=== PATIENT | male | born 1935 | race Hispanic/Latino ===

== ENCOUNTER 2018-02-17 06:32 | Outpatient (CLI) | payer MEDICARE ==
[2018-02-17 07:05] LABS: Blood Urea Nitrogen 21 mg/dL (9-20)
--- NOTE | 2018-02-17 08:32 | Cat Scan Report ---
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 Transaxial , coronal and sagittal reformations with maximal intensity projections are provided. 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 The right common carotid artery show scattered atherosclerosis and less than 25 percent stenosis by NASCET criteria. There is bulky calcification at the carotid bulb and approximately 90 percent stenosis involving the origin of the right internal carotid artery on axial images 67-169. There is approximately 40 percent luminal stenosis at the left carotid bulb. Scattered atherosclerosis in the internal carotid artery results in less than 25 percent luminal stenosis. The left common and internal carotid arteries are otherwise normal in course and caliber. Calcification near the origin of the left vertebral artery on axial series 2, images 22, 24, and 25 results in approximately 50 percent luminal stenosis. No significant stenosis seen in the right vertebral artery. Normal caliber, well opacified basilar artery. Intact [place]. Posterior cerebral arteries and their major branches are well opacified and normal in caliber. IMPRESSION: Bulky calcification at the right carotid bulb results in approximately 90 percent stenosis at the origin of the right internal carotid artery. Approximately 50 percent stenosis at the anatomic variant aortic origin of the left vertebral artery.
== END 2018-02-17 06:33 | disposition home or self-care (01) ==
LOC: CT 06:32
PROVIDERS: ATTEND Surgery Vascular Surgery
DX: I65.03 Occlusion and stenosis of bilateral vertebral arteries (principal); E11.9 Type 2 diabetes mellitus without complications
CPT/HCPCS: 36415; 70498; 82565; 84520; Q9967

== ENCOUNTER 2018-03-02 11:00 | Inpatient (IN) | payer MEDICARE ==
[2018-02-26 12:01] LABS: Basophils # (Auto) 0.1 K/mm3 (0.0-0.1); Basophils % (Auto) 0.7 % (0.0-1.8); Eosinophils # (Auto) 0.1 K/mm3 (0.0-0.4); Eosinophils % (Auto) 0.8 % (0.0-4.3); Hematocrit 39.9 % (35.5-45.6); Hemoglobin 13.9 gm/dl (11.8-15.2); Lymphocytes # (Auto) 1.8 K/mm3 (1.2-5.4); Lymphocytes % (Auto) 20.1 % (13.4-35.0); Mean Corpuscular HGB Conc 35 % (32-34); Mean Corpuscular Hemoglobin 32 pg (28-32); Mean Corpuscular Volume 90 fl (84-94); Monocytes # (Auto) 0.9 K/mm3 (0.0-0.8); Monocytes % (Auto) 9.9 % (0.0-7.3); Platelet Count 193 K/mm3 (140-440); Red Blood Count 4.42 M/mm3 (3.65-5.03); Red Cell Distribution Width 14.9 % (13.2-15.2)
[2018-02-26 12:13] LABS: INR 1.84 (0.87-1.13)
[2018-02-26 12:35] LABS: BUN/Creatinine Ratio 21; Blood Urea Nitrogen 23 mg/dL (9-20); Calcium 8.8 mg/dL (8.4-10.2); Hemolysis Index 9
--- NOTE | 2018-02-26 17:25 | Anesthesia Consultation ---
Anesthesia Consult and Med Hx - Airway Anesthetic Teeth Evaluation: Dentures ROM Head & Neck: Adequate Mental/Hyoid Distance: Adequate Mallampati Class: Class II Intubation Access Assessment: Good - Pulmonary Exam CTA: Yes - Cardiac Exam Cardiac Exam: RRR - Pre-Operative Health Status ASA Pre-Surgery Classification: ASA3 Proposed Anesthetic Plan: General - Pulmonary Hx Smoking: Yes (Former) - Cardiovascular System Hx Coronary Artery Disease: Yes Hx Heart Attack/AMI: Yes (? when) - Central Nervous System Hx Back Pain: Yes Hx Psychiatric Problems: No - Other Systems Hx Cancer: Yes
[~2018-03-02 11:00] MED LIST: LACTATED RINGERS 1,000 ML IV SCH
[2018-03-03] MEDS ORDERED: ANCEF/STERILE WATER 2 GM/20 ML 2 GM/20 ML SYRINGE IV NR (06:00)
[2018-03-03] MEDS ORDERED: NACL BACTERIOSTATIC INFILTRATI ONE (06:36)
--- NOTE | 2018-03-03 07:11 | Anesthesia Day of Surgery ---
Anesthesia Day of Surgery - Day of Surgery Patient Examined: Yes Patient H&P Reviewed: Yes Patient is NPO: Yes
[2018-03-03] MEDS ORDERED: ZOFRAN IV PRN ×2 (07:12→15:06)
[2018-03-03] MEDS ORDERED: PERCOCET 5/325 PO PRN (07:12)
[2018-03-03] MEDS ORDERED: DILAUDID IV PRN (07:12)
[2018-03-03] MEDS ORDERED: RIFADIN ONE (07:14)
[2018-03-03] MEDS ORDERED: PAPAVERINE ONE (07:14)
[2018-03-03] MEDS ORDERED: NACL 0.9% 250ML 0 ML ONE (07:14)
[2018-03-03] MEDS ORDERED: MARCAINE 0.5% 30 ML INFILTRATI ONE (07:14)
[2018-03-03] MEDS ORDERED: XYLOCAINE 1% 20 mL ONE ×2 (07:14→07:43)
[2018-03-03] MEDS ORDERED: HEPARIN 10,000 UNITS/10 ML ONE (07:14)
[2018-03-03] MEDS ORDERED: PROTAMINE SULFATE ONE (07:14)
[2018-03-03] MEDS ORDERED: THROMBIN (BOVINE) TP ONE ×2 (07:15→10:36)
[2018-03-03] MEDS ORDERED: NACL 0.9% 500 ML 500 ML ONE (07:15)
[2018-03-03] MEDS ORDERED: GELFOAM TP ONE ×2 (07:15→10:36)
[2018-03-03] MEDS ORDERED: QUELICIN ONE (07:45)
[2018-03-03] MEDS ORDERED: ZEMURON IV ONE (07:45)
[2018-03-03] MEDS ORDERED: XYLOCAINE CARDIAC IV ONE (07:45)
[2018-03-03] MEDS ORDERED: SUBLIMAZE ONE (07:46)
[2018-03-03] MEDS ORDERED: DIPRIVAN 10 MG/ML IV ONE (07:46)
[2018-03-03] MEDS ORDERED: VERSED IV NR (08:00)
[2018-03-03] MEDS ORDERED: NITROGLYCERIN SYRINGE 3 ML ONE (08:04)
[2018-03-03 08:15] LABS: INR 0.97 (0.87-1.13)
[2018-03-03] MEDS ORDERED: ROBINUL ONE ×2 (08:35→10:35)
[2018-03-03] MEDS ORDERED: ePHEDrine SULFATE ONE (08:37)
[2018-03-03] MEDS ORDERED: RIFADIN 600 MG in NACL 0.9% 50 ML IR ONE (09:16)
[2018-03-03] MEDS ORDERED: HEPARIN 10,000 UNITS/10 ML 2,000 UNIT in NACL 0.9% 500 ML 500 ML IR ONE (09:16)
[2018-03-03] MEDS ORDERED: MARCAINE 0.5% INFILTRATI ONE (09:16)
[2018-03-03] MEDS ORDERED: NACL 0.9% IR ONE (09:16)
[2018-03-03] MEDS ORDERED: NEOSTIGMINE ONE (10:35)
[2018-03-03] MEDS ORDERED: ZOFRAN ONE (10:35)
--- NOTE | 2018-03-03 11:25 | Operative Report ---
Operative Report Operative Report: Date of procedure: 03/03/2018 Pre-operative diagnosis: Right Carotid Artery Stenosis Post-operative diagnosis: Right Carotid Artery Stenosis Procedure(s): 1. Right Carotid Endarterectomy With Patch Angioplasty 2. Intraoperative Completion Duplex Surgeon: Jono Hidalgo MD Supervisor Feed Mill: None Anesthesia: General Endotracheal Anesthesia EBL: Minimal Findings: Significant internal right carotid artery stenosis. Specimen: Right Carotid Plaque Counts: Correct Complications: None Condition: Stable Indication: The patient is an 82-year-old male with history of coronary artery disease and age for fibrillation was referred for asymptomatic carotid artery stenosis. She had a carotid artery duplex that demonstrated greater than 80% stenosis of his right internal carotid artery that was confirmed by CTA of his neck. He was worked up by his pasting machine operator and found to be a suitable candidate for open repair. He was given the risk, benefits, and alternative procedures and consented to the procedure. Description of Procedure: The patient was brought to the operating room and laid in supine position. After general endotracheal anesthesia was achieved the patient was placed in beachchair position with her head elevated and turned slightly to the left. The patient's neck and chest were prepped and draped in normal fashion. An oblique incision was then created along the anterior border of the sternocleidomastoid. The incision was then carried down to the facial vein using sharp dissection. The facial vein was then dissected out circumferentially, suture ligated and divided. The dissection was then carried down to the common carotid using sharp dissection. The common carotid artery was dissected out circumferentially taking care to avoid the vagus nerve which was identified and avoided. The artery was then controlled with a large vessel loop. The dissection was carried up along the external carotid and the superficial thyroid artery was identified dissected out circumferentially and controlled with a 2-0 silk. The external carotid was dissected out and controlled a small vessel loop. I then dissected out the internal carotid artery well above the plaque which was identified by a change in hue of the artery from yellow to blue and palpation of the artery over a right angle. The hypoglossal nerve was identified and avoided. I controlled the internal carotid artery with a small vessel and at this point the patient was systemically heparinized with heparin IV. Once the heparin had circulated for 3 minute I clamped the internal carotid artery followed by the common carotid and then the external Carotid artery. I created an arteriotomy extending from the common carotid into the internal carotid, well above the plaque, using an 11 blade and Coates scissors. I then flashed the internal carotid artery to check for adequate backbleeding. Once ensure there was adequate backbleeding reclamped the artery and used a [place] blade to dissect the plaque away from the artery. I used a right angle to continue the dissection of this plane from lateral to medial and then divided the plaque using Coates scissors. I then trimmed the plaque proximally using Coates and then teased the plaque away from the distal endpoint insuring that there were no areas of dissection or intimal flaps. These plaque forceps to remove all loose debris and then flushed the artery with heparinized saline. I then closed the artery using the Dacron patch and two 6-0 Prolenes in running fashion. Prior to completing the closure I flushed all arteries to remove all loose debris and then flushed the artery with heparinized saline. I then completed the closure in an flashed the internal carotid, reclamped and then removed the clamp from the common carotid followed by the external carotid and allowed any loose debris to flush into the external carotid. I then removed the clamp from the internal carotid artery. Hemostasis was achieved with repair sutures with 6-0 Prolene in interrupted fashion and a combination of direct pressure with Quick Clot. Once hemostasis was achieved I performed an intraoperative duplex that demonstrated no evidence of dissection and normalization of internal carotid velocity. I then anesthetized the wound with 0.5% Marcaine and closed in 2 layers using a 3-0 Vicryl in running in the deep dermal layer and a 4-0 Monocryl in running in the subcuticular layer and dressed it with the Dermabond. The patient tolerated the procedure well all sponge needle and instrument counts were correct the patient was taken to the recovery area in stable condition.
--- NOTE | 2018-03-03 11:36 | Post Anesthesia Evaluation ---
- Post Anesthesia Evaluation Patient Participated: Yes Airway Patent: Yes Stable Respiratory Function: Yes Nausea/Vomiting: No Temp > 96.8F: Yes Pain Manageable: Yes Adequeate Hydration: Yes Anesthesia Complications: No Block Receding Appropriately: Not Applicable Patient on Ventilator: No
[2018-03-03] MEDS ORDERED: NEO SYNEPHRINE/NS Syringe(OR USE) IV ONE (12:40)
[2018-03-03] MEDS ORDERED: NARCAN 0.4 MG/1 ML IV PRN (15:06)
[2018-03-03] MEDS: NORCO 5/325 PO PRN ×2 (15:24→21:51)
[2018-03-03] MEDS ORDERED: INTROPIN DRIP 800 MG/D5W 250 ML 800 MG/250 ML BAG IV SCH (16:00)
[2018-03-03] MEDS ORDERED: NIPRIDE 50 MG in D5W 248 ML IV SCH (16:00)
[2018-03-03] MEDS ORDERED: NACL 0.9% 1000 ML 1,000 ML IV SCH (16:00)
[2018-03-03] MEDS ORDERED: ANCEF/NS 1 GM/50 ML 1 GM/50 ML BAG IV SCH (16:00)
[2018-03-03] MEDS ORDERED: COUMADIN PO SCH ×2 (17:00)
[2018-03-03] MEDS: HumaLOG SUB-Q SCH ×2 (17:19→21:50)
[2018-03-03] MEDS: ceFAZolin 1 GM in NACL 0.9% 20 ML IV SCH ×2 (17:19→23:57)
[2018-03-03] MEDS: LOVENOX SUB-Q SCH (21:50)
[2018-03-03] MEDS: COLACE PO SCH (21:51)
[2018-03-03] MEDS: GLUCOPHAGE PO SCH (21:51)
[2018-03-04 05:44] LABS: INR 1.05 (0.87-1.13)
--- NOTE | 2018-03-04 09:05 | Consultation ---
History of Present Illness Consult date: 03/04/18 Requesting physician: RIGOBERTO GREEN Reason for consult: other (Post carotid endarterectomy for ICU monitoring) History of present illness: This is a 82 year old man admitted to the ICU for close monitoring post right carotid endarterectomy. 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 Carotid doppler studies showed 76-95% stenosis in the right internal carotid and 50-75% lesion in the left internal carotid artery. His echocardiogram on 12/11/2016 showed normal systolic function with EF 60%. He coumadin was held 4 days prior to surgery and his aspirin 1 week before surgery. He underwent ,Right Carotid Endarterectomy With Patch Angioplasty with Intraoperative Completion Duplex which was uneventful. He has been admitted to the ICU for cardiac monitoring and for monitoring for re -perfusion injury. Patient was seen and examined. Vitals, labs, medications, chart, EKG were reviewed. He denies any chest pain, no shortness of breath, no palpitations.. No fevers or chills. No dizziness, no nausea or vomiting. Patient was discussed in ICU IDT rounds Past History Past Medical History: atrial fib, CAD, cancer (prostate), hypertension, hyperlipidemia Past Surgical History: CABG Social history: , lives with family Family history: CAD Medications and Allergies Allergies Allergy/AdvReac Type Severity Reaction Status Date / Time lisinopril Allergy Unknown Verified 02/25/18 11:58 oxycodone Allergy Dizziness Unverified 02/25/18 11:58 Home Medications Medication Instructions Recorded Confirmed Last Taken Type Aspirin [Aspirin EC] 81 mg PO DAILY 02/26/18 03/03/18 02/26/18 History AtorvaSTATin [Lipitor] 20 mg PO QHS 02/26/18 03/03/18 03/02/18 History Digoxin 125 mcg PO DAILY 02/26/18 03/03/18 03/03/18 History Diltiazem [CarDIZEM] 10 mg PO DAILY 02/26/18 03/03/18 03/03/18 History Finasteride [Proscar] 10 mg PO DAILY 02/26/18 03/03/18 03/03/18 History Niacin [Slo-Niacin] 500 mg PO DAILY 02/26/18 03/03/18 03/03/18 History [place]-3/Dha/Epa/Fish Oil [[place] 3 1 each PO DAILY 02/26/18 03/03/18 03/02/18 History 500 Softgel] Terazosin [Hytrin] 10 mg PO DAILY 02/26/18 03/03/18 03/02/18 History Warfarin Sodium [Coumadin] 4.5 mg PO DAILY 02/26/18 02/26/18 02/25/18 History metFORMIN [Glucophage] 500 mg PO BID 02/26/18 03/03/18 02/27/18 History HYDROcodone/APAP 7.5-325 [[place] 1 each PO Q6HR PRN #40 tablet 03/03/18 Unknown Rx 7.5/325] Active Meds: Active Medications Acetaminophen/Hydrocodone Bitart ([place] 5/325) 1 each PO Q6H PRN PRN Reason: Pain, Moderate (4-6) Last Admin: 03/03/18 21:51 Dose: 1 each Aspirin (Halfprin Ec) 81 mg PO DAILY [facility] Atorvastatin Calcium (Lipitor) 20 mg PO QHS [facility] Last Admin: 03/03/18 21:50 Dose: 20 mg Clopidogrel Bisulfate (Plavix) 75 mg PO QDAY [facility] Digoxin (Lanoxin) 0.125 mg PO DAILY [facility] Diltiazem HCl (Cardizem) 10 mg PO DAILY [facility] Docusate Sodium (Colace) 100 mg PO BID [facility] Last Admin: 03/03/18 21:51 Dose: 100 mg Enoxaparin Sodium (Lovenox) 100 mg SUB-Q Q12HR [facility] Last Admin: 03/03/18 21:50 Dose: 100 mg Finasteride (Proscar) 10 mg PO DAILY [facility] Fish Oil (Fish Oil) 1,000 mg PO QDAY [facility] Lactated Ringer's (Lactated Ringers) 1,000 mls @ 42 mls/hr IV DIRECT [facility] Last Admin: 03/03/18 06:50 Dose: 42 mls/hr Dopamine HCl/Dextrose (Intropin Drip 800 Mg/D5w 250 Ml) 800 mg in 250 mls @ 3.725 mls/hr IV TITR [facility]; Protocol Sodium Nitroprusside 50 mg/ (Dextrose) 250 mls @ 7.45 mls/hr IV TITR [facility]; Protocol Sodium Chloride (Nacl 0.9% 1000 Ml) 1,000 mls @ 100 mls/hr IV DIRECT [facility] Insulin Human Lispro (Humalog) 0 unit SUB-Q ACHS [facility]; Protocol Last Admin: 03/03/18 21:50 Dose: Not Given Metformin HCl (Glucophage) 500 mg PO BID [facility] Last Admin: 03/03/18 21:51 Dose: 500 mg Naloxone HCl (Narcan 0.4 Mg/1 Ml) 0.1 mg IV Q2MIN PRN PRN Reason: Res Rate </= 8 or 02 SAT < 92% Niacin (Niaspan Er) 500 mg PO QDAY [facility] Ondansetron HCl (Zofran) 4 mg IV Q8H PRN PRN Reason: Nausea And Vomiting Prazosin HCl (Minipress) 5 mg PO Q12HR [facility] Warfarin Sodium (Coumadin) 2 mg PO DAILY@1700 [facility] Last Admin: 03/03/18 17:20 Dose: 2 mg Warfarin Sodium (Coumadin) 2.5 mg PO DAILY@1700 [facility] Last Admin: 03/03/18 17:19 Dose: 2.5 mg Review of Systems Constitutional: no weight loss, no weight gain, no fever, no chills, no sweats Ears, nose, mouth and throat: no ear discharge, no decreased hearing, no nasal congestion, no epistaxis, no sore throat Cardiovascular: no chest pain, no palpitations, no edema, no syncope, no lightheadedness, no shortness of breath Respiratory: no cough, no congestion, no pleurisy, no pain on inspiration Gastrointestinal: no abdominal pain, no nausea, no vomiting, no diarrhea, no constipation Genitourinary Male: no dysuria, no hematuria, no discharge, no nocturia Musculoskeletal: no neck stiffness, no neck pain, no redness of joints Neurological: no head injury, no transient paralysis, no weakness, no parathesias, no numbness, no seizures Psychiatric: no anxiety, no depression, no hopelessness, no anxiety attacks Endocrine: no cold intolerance, no heat intolerance, no polyphagia, no excessive thirst, no polydipsia, no polyuria Hematologic/Lymphatic: easy bruising Allergic/Immunologic: no urticaria, no allergic rhinitis, no wheezing Physical Examination Vital signs: Vital Signs Temp Pulse Resp BP 98.1 F 76 20 130/80 02/26/18 11:30 02/26/18 11:30 02/26/18 11:30 02/26/18 11:30 General appearance: no acute distress, alert, other (right neck scar with some induration and eccyhmosis) Eyes: non-icteric ENT: oropharynx moist Neck: supple, no lymphadenopathy, no JVD Effort: normal Ascultation: Bilateral: diminished breath sounds Cardiovascular: irregular rhythm, murmur noted Gastrointestinal: normoactive bowel sounds, soft, non-tender, non-distended Integumentary: normal Extremities: no cyanosis, no edema, no ischemia or petechiae Musculoskeletal: no deformities Gait: normal gait, normal posture normal mental status, non-focal exam, pupils equal and round, CN II-XII normal, motor strength normal and mood appropriate, affect normal Results - Laboratory Findings CBC and BMP: 02/26/18 11:45 02/26/18 11:45 PT/INR, D-dimer PT 14.2 Sec. (12.2-14.9) 03/04/18 04:58 INR 1.05 (0.87-1.13) 03/04/18 04:58 Abnormal lab findings: Abnormal Labs 02/26/18 02/26/18 02/26/18 11:45 11:45 11:45 MCHC 35 H [place] % (Auto) 9.9 H [place] # 0.9 H PT 22.4 H INR 1.84 H BUN 23 H Glucose 132 H POC Glucose 03/03/18 03/03/18 03/03/18 07:01 11:27 15:33 MCHC [place] % (Auto) [place] # PT INR BUN Glucose POC Glucose 132 H 141 H 162 H 03/03/18 03/04/18 21:32 08:16 MCHC [place] % (Auto) [place] # PT INR BUN Glucose POC Glucose 157 H 153 H Assessment and Plan Bilateral carotid stenosis -s/p right carotid endarterectomy -Atrial fibrillation, on anticoagulation -CAD, s/p CABG - HTN -Hyperlipidemia -Monitor in ICU -cardiac monitoring -Neurologic monitoring -Monitor hemodynamics closely -Resume coumadin and aspirin on discharge -Increase activity -Low salt, cardiac diet once he is fully awake and passes bedside swallow -Stain therapy, antiplatelet therapy -Discharge planning per vascular service -Coumadin clinic follow up post discharge
[2018-03-04] MEDS ORDERED: HALFPRIN EC PO SCH (10:00)
[2018-03-04] MEDS ORDERED: NIACIN 500 MG PO SCH (10:00)
[2018-03-04] MEDS ORDERED: PLAVIX PO SCH (10:00)
[2018-03-04] MEDS ORDERED: NON-FORMULARY (Terazosin 10 MG) PO SCH (10:00)
[2018-03-04] MEDS ORDERED: PROSCAR PO SCH (10:00)
[2018-03-04] MEDS ORDERED: LANOXIN PO SCH (10:00)
[2018-03-04] MEDS ORDERED: MINIPRESS PO SCH (10:00)
[2018-03-04] MEDS ORDERED: WARFARIN SODIUM 4.5 MG PO SCH (10:00)
[2018-03-04] MEDS ORDERED: FISH OIL PO SCH (10:00)
[2018-03-04] MEDS ORDERED: NON-FORMULARY (Omega-3/Dha/Epa/Fish Oil [Omega 3 500 Softgel] 1 EACH) PO SCH (10:00)
[2018-03-04] MEDS ORDERED: NIASPAN ER PO SCH (10:00)
[2018-03-04] MEDS ORDERED: CARDIZEM PO SCH (10:00)
[2018-03-04] MEDS: GLUCOPHAGE PO SCH (10:37)
[2018-03-04] MEDS: COLACE PO SCH (10:42)
[2018-03-04] MEDS: LOVENOX SUB-Q SCH (11:13)
--- NOTE | 2018-03-04 15:26 | Vascular Lab Report ---
INTRAOPERATIVE CAROTID ARTERY DUPLEX Reason for exam: Completion of carotid endarterectomy Comments on the right: The common and internal carotid arteries are patent without evidence of intraluminal irregularities. Flow velocities appear to be appropriate. No obvious technical defects at the endarterectomy site appreciated. Impression: No obvious technical imperfections at the endarterectomy site.
--- NOTE | 2018-03-04 15:30 | Progress Note ---
Assessment and Plan Pt s/p R CEA. Doing well post-op Increase activity, if tolerates then d/c home. - Patient Problems (1) Carotid stenosis, right Current Visit: Yes Status: Acute Subjective Date of service: 03/04/18 Interval history: Pt awake and alert. Mild incisional discomfort, but tolerable with analgesics. Objective - Constitutional Vitals: Vital Signs - 12hr 03/04/18 03/04/18 03/04/18 04:00 04:01 05:00 Temperature 98.1 F Pulse Rate 83 89 Pulse Rate [ 88 From Monitor] Respiratory 19 18 Rate Blood Pressure 128/59 137/64 O2 Sat by Pulse 92 95 95 Oximetry 03/04/18 03/04/18 03/04/18 06:00 07:49 08:00 Temperature 98.8 F Pulse Rate 88 Pulse Rate [ From Monitor] Respiratory 25 H Rate Blood Pressure 148/80 O2 Sat by Pulse 94 94 Oximetry 03/04/18 03/04/18 10:37 10:39 Temperature Pulse Rate 85 85 Pulse Rate [ From Monitor] Respiratory Rate Blood Pressure 136/71 136/71 O2 Sat by Pulse Oximetry General appearance: Present: no acute distress - EENT Eyes: EOM intact ENT: hearing intact - Neck Neck: supple (soft, mod to extensive ecchymosis, no erythema or drainage.) - Respiratory Respiratory effort: normal Extremities: no ischemia, normal temperature - Neurologic Neurologic: no focal deficits, moves all extremities (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
--- NOTE | 2018-03-04 15:35 | Short Stay Summary ---
Short Stay Documentation Date of service: 03/04/18 - History H&P: obtained from office Past Medical History: atrial fib, CAD, cancer (prostate), hypertension, hyperlipidemia Past Surgical History: CABG Social history: , lives with family - Allergies and Medications Current Medications: Allergies lisinopril Allergy (Verified 02/25/18 11:58) Unknown oxycodone Allergy (Unverified 02/25/18 11:58) Dizziness Home Medications Medication Instructions Recorded Confirmed Last Taken Type Aspirin [Aspirin EC] 81 mg PO DAILY 02/26/18 03/03/18 02/26/18 History AtorvaSTATin [Lipitor] 20 mg PO QHS 02/26/18 03/03/18 03/02/18 History Digoxin 125 mcg PO DAILY 02/26/18 03/03/18 03/03/18 History Diltiazem [CarDIZEM] 10 mg PO DAILY 02/26/18 03/03/18 03/03/18 History Finasteride [Proscar] 10 mg PO DAILY 02/26/18 03/03/18 03/03/18 History Niacin [Slo-Niacin] 500 mg PO DAILY 02/26/18 03/03/18 03/03/18 History [place]-3/Dha/Epa/Fish Oil [[place] 3 1 each PO DAILY 02/26/18 03/03/18 03/02/18 History 500 Softgel] Terazosin [Hytrin] 10 mg PO DAILY 02/26/18 03/03/18 03/02/18 History Warfarin Sodium [Coumadin] 4.5 mg PO DAILY 02/26/18 02/26/18 02/25/18 History metFORMIN [Glucophage] 500 mg PO BID 02/26/18 03/03/18 02/27/18 History HYDROcodone/APAP 7.5-325 [[place] 1 each PO Q6HR PRN #40 tablet 03/03/18 Unknown Rx 7.5/325] Active Medications Acetaminophen/Hydrocodone Bitart ([place] 5/325) 1 each PO Q6H PRN PRN Reason: Pain, Moderate (4-6) Last Admin: 03/03/18 21:51 Dose: 1 each Aspirin (Halfprin Ec) 81 mg PO DAILY [facility] Last Admin: 03/04/18 10:39 Dose: 81 mg Atorvastatin Calcium (Lipitor) 20 mg PO QHS [facility] Last Admin: 03/03/18 21:50 Dose: 20 mg Clopidogrel Bisulfate (Plavix) 75 mg PO QDAY [facility] Last Admin: 03/04/18 10:39 Dose: 75 mg Digoxin (Lanoxin) 0.125 mg PO DAILY [facility] Last Admin: 03/04/18 10:39 Dose: 0.125 mg Diltiazem HCl (Cardizem) 10 mg PO DAILY [facility] Last Admin: 03/04/18 10:37 Dose: 10 mg Docusate Sodium (Colace) 100 mg PO BID [facility] Last Admin: 03/04/18 10:42 Dose: 100 mg Enoxaparin Sodium (Lovenox) 100 mg SUB-Q Q12HR [facility] Last Admin: 03/04/18 11:13 Dose: 100 mg Finasteride (Proscar) 10 mg PO DAILY [facility] Fish Oil (Fish Oil) 1,000 mg PO QDAY [facility] Dopamine HCl/Dextrose (Intropin Drip 800 Mg/D5w 250 Ml) 800 mg in 250 mls @ 3.725 mls/hr IV TITR [facility]; Protocol Sodium Nitroprusside 50 mg/ (Dextrose) 250 mls @ 7.45 mls/hr IV TITR [facility]; Protocol Sodium Chloride (Nacl 0.9% 1000 Ml) 1,000 mls @ 100 mls/hr IV DIRECT [facility] Insulin Human Lispro (Humalog) 0 unit SUB-Q ACHS [facility]; Protocol Last Admin: 03/03/18 21:50 Dose: Not Given Metformin HCl (Glucophage) 500 mg PO BID [facility] Last Admin: 03/04/18 10:37 Dose: 500 mg Naloxone HCl (Narcan 0.4 Mg/1 Ml) 0.1 mg IV Q2MIN PRN PRN Reason: Res Rate </= 8 or 02 SAT < 92% Niacin (Niaspan Er) 500 mg PO QDAY [facility] Last Admin: 03/04/18 10:39 Dose: 500 mg Ondansetron HCl (Zofran) 4 mg IV Q8H PRN PRN Reason: Nausea And Vomiting Prazosin HCl (Minipress) 5 mg PO Q12HR [facility] Warfarin Sodium (Coumadin) 2 mg PO DAILY@1700 [facility] Last Admin: 03/03/18 17:20 Dose: 2 mg Warfarin Sodium (Coumadin) 2.5 mg PO DAILY@1700 [facility] Last Admin: 03/03/18 17:19 Dose: 2.5 mg - Physical exam Extremities: no ischemia, normal temperature - Brief post op/procedure progress note Procedure: Operative Report Operative Report: Date of procedure: 03/03/2018 Pre-operative diagnosis: Right Carotid Artery Stenosis Post-operative diagnosis: Right Carotid Artery Stenosis Procedure(s): 1. Right Carotid Endarterectomy With Patch Angioplasty 2. 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 Specimen: Right Carotid Plaque Counts: Correct Complications: None Condition: Stable Indication: The patient is an 82-year-old male with history of coronary artery disease and age for fibrillation was referred for asymptomatic carotid artery stenosis. She had a carotid artery duplex that demonstrated greater than 80% stenosis of his right internal carotid artery that was confirmed by CTA of his neck. He was worked up by his client support representative and found to be a suitable candidate for open repair. He was given the risk, benefits, and alternative procedures and consented to the procedure. - Disposition Condition at discharge: Stable Disposition: DC-01 TO HOME OR SELFCARE - Discharge Diagnoses (1) Carotid stenosis, right Status: Acute Short Stay Discharge Plan Activity: advance as tolerated Weight Bearing Status: Weight Bear as Tolerated Diet: regular Wound: keep clean and dry Additional Instructions: Resume all pre-op medications upon d/c, Including lovenox (as perscribed by cardiology). Follow up with Cardiology as previously scheduled for INR check and coumadin adjustment. Follow up with: JONO HIDALGO MD [Staff Physician] - 14 Days BARBIE GORDILLO MD [Staff Physician] - 03/05/18 (for INR check and coumadin adjustment) Forms: Warfarin Discharge Instruction Prescriptions: HYDROcodone/APAP 7.5-325 [[place] 7.5/325] 1 each PO Q6HR PRN #40 tablet PRN Reason: Pain
[2018-03-04 15:53] VITALS: BP 141/119
== END 2018-03-04 16:06 | disposition home or self-care (01) | DRG 39 ==
LOC: 3A 03-03 06:05 → CC1 03-03 12:40
PROVIDERS: ADMIT Surgery Vascular Surgery; ATTEND Surgery Vascular Surgery
PROC: 03CK0ZZ Extirpation of Matter from Right Internal Carotid Artery, Open Approach (ICD-10-PCS; principal; 2018-03-03)
PROC: 03UK0JZ Supplement Right Internal Carotid Artery with Synthetic Substitute, Open Approach (ICD-10-PCS; 2018-03-03)
DX: I65.21 Occlusion and stenosis of right carotid artery (principal); E11.9 Type 2 diabetes mellitus without complications; I48.91 Unspecified atrial fibrillation; I10 Essential (primary) hypertension; Z95.1 Presence of aortocoronary bypass graft; Z82.49 Family history of ischemic heart disease and other diseases of the circulatory system; Z79.899 Other long term (current) drug therapy; Z88.8 Allergy status to other drugs, medicaments and biological substances; Z88.6 Allergy status to analgesic agent; Z79.01 Long term (current) use of anticoagulants
CPT/HCPCS: 36415; 80048; 82962; 85025; 85610; 86850; 86900; 86901; 88304; 88311; A4649; A9270-GY; C1768; J0330; J0690; J1170; J1644; J1650; J1815; J2001; J2250; J2370; J2405; J2440; J2704; J2710; J2720; J3010; J3490; J7040; J7050; J7120